=== PATIENT | female | born 1940 | race Caucasian/White ===

== ENCOUNTER 2024-02-02 09:18 | Day surgery (SDC) | payer OTHER ==
[2024-01-31 15:37] VITALS: BMI 31.6
[2024-02-02] MEDS ORDERED: KETOROLAC TROMETHAMINE 60 MG/2 ML VIAL ONE (11:12)
[2024-02-02] MEDS ORDERED: BUPIVACAINE HCL/PF 2.5 MG/ML - 30 ML VIAL IJ ONE (11:12)
[2024-02-02] MEDS ORDERED: VANCOMYCIN 1,000 MG VIAL (RESTRICTED TO ID ONLY) ONE (11:12)
[2024-02-02] MEDS ORDERED: BUPIVACAINE LIPOSOME/PF (EXPAREL) 266 MG/20 ML VIAL ONE (11:37)
[2024-02-02] MEDS ORDERED: ROPIVACAINE HCL/PF 100 MG/20 ML VIAL ONE (11:37)
[2024-02-02] MEDS ORDERED: BUPIVACAINE HCL/PF 0.5% (5 MG/ML) 30 ML VIAL IJ ONE (11:37)
[2024-02-02] MEDS ORDERED: oxyCODONE HCL 5 MG TABLET PO PRN ×2 (11:38)
[2024-02-02] MEDS ORDERED: MIDAZOLAM HCL 2 MG/2 ML SINGLE DOSE VIAL ONE ×3 (11:39→12:20)
[2024-02-02] MEDS ORDERED: BUPIVACAINE HCL/PF 0.5% (5MG/ML) 10 ML VIAL ONE (12:07)
[2024-02-02] MEDS ORDERED: ceFAZolin SODIUM 1 GM VIAL ONE (12:14)
[2024-02-02] MEDS ORDERED: TRANEXAMIC ACID 1000 MG/10 ML VIAL ONE (12:14)
[2024-02-02] MEDS ORDERED: PROPOFOL 60 ML ONE (12:18)
[2024-02-02] MEDS ORDERED: MAGNESIUM HYDROX 2400MG/30ML ORAL SUSPENSION 30 ML CUP PO PRN (15:31)
[2024-02-02] MEDS ORDERED: MAG HYDROX/AL HYDROX/SIMETH 30 ML UNIT-DOSE CUP PO PRN (15:31)
[2024-02-02] MEDS ORDERED: ONDANSETRON 4 MG/2 ML VIAL IVPUSH PRN (15:31)
[2024-02-02] MEDS ORDERED: ACETAMINOPHEN 500 MG TABLET (FP) ONE (16:19)
[2024-02-02] MEDS: ACETAMINOPHEN 500 MG TABLET (FP) PO SCH (16:19)
[2024-02-02] MEDS: traMADol HCL 50 MG TABLET PO SCH (17:01)
[2024-02-02] MEDS: LACTATED RINGERS SOLUTION 1,000 ML IV SCH ×2 (17:02)
[2024-02-02 17:22] VITALS: RESP 17
[2024-02-02] MEDS: CEFAZOLIN 2 GM in DEXTROSE 5%-WATER - 100 ML IVPB ONE (17:42)
[2024-02-02] MEDS: CEFAZOLIN SODIUM 2 GM in DEXTROSE 5%-WATER 100 ML IVPB SCH (20:07)
[2024-02-02] MEDS: HYDROmorphone HCl 2 MG/ML VIAL IVPUSH PRN (20:07)
[2024-02-02] MEDS: NAPROXEN 500 MG TABLET PO SCH (22:05)
[2024-02-02] MEDS: ATORVASTATIN CA 10 MG TABLET (FP) PO SCH (22:05)
[2024-02-02] MEDS: FOLIC ACID 1 MG TABLET (FP) PO SCH (22:05)
[2024-02-02] MEDS: metoPROLOL SUCCINATE 25 MG TAB.SR.24H (FP) PO SCH (22:05)
[2024-02-02] MEDS: SENNOSIDES/DOCUSATE COMBO (SENNA PLUS) TABLET (UD) PO SCH (22:05)
[2024-02-03 07:39] LABS: HEMATOCRIT 31.8 % (32.4-45.2); HEMOGLOBIN 10.4 G/dL (10.7-15.3); MCH 29.9 pg (25.7-33.7); MCHC 32.5 g/dl (32.0-36.0); MEAN CELL VOLUME 91.9 fl (80-96); MEAN PLT VOLUME 8.9 fl (7.5-11.1); PLATELET COUNT 248.9 10^3/uL (134-434); RBC 3.46 10^6/uL (3.60-5.2); WHITE BLOOD COUNT 9.6 10^3/uL (4.0-10.8)
[2024-02-03 08:03] LABS: CALCIUM 9.2 mg/dl (8.5-10.1); CREATININE 1.1 mg/dl (0.6-1.3); POTASSIUM 4.9 mmol/L (3.5-5.1)
[2024-02-03] MEDS ORDERED: REFRIGERATED ANITBIOTICS ONE (08:33)
[2024-02-03] MEDS ORDERED: APIXABAN 5 MG TABLET PO SCH ×3 (10:00)
[2024-02-03] MEDS: PANTOPRAZOLE 40 MG TABLET PO SCH (10:18)
[2024-02-03] MEDS ORDERED: diazePAM 5 MG TABLET PO PRN (11:44)
[2024-02-03 14:19] VITALS: BP 130/68; PULSE 64; TEMP 98.1
== END 2024-02-03 15:55 ==
LOC: FASUSAT 09:18 → FM/S 16:49 → FASUSAT 02-03 15:55
PROVIDERS: ATTEND Internal Medicine
PROC: 8E0Y0CZ Robotic Assisted Procedure of Lower Extremity, Open Approach (ICD-10-PCS; 2024-02-02)
PROC: 0SRD0J9 Replacement of Left Knee Joint with Synthetic Substitute, Cemented, Open Approach (ICD-10-PCS; principal; 2024-02-02 12:42)
DX: M17.12 Unilateral primary osteoarthritis, left knee (principal)
CPT/HCPCS: 20985; 27447; C1776; S2900; 36415; 73560-TC-LT-FY; 80048; 85027; 94760; 97010-GP; 97116-GP; 97162-GP; C1713; C1889